=== PATIENT | female | born 2000 | race Caucasian/White ===

== ENCOUNTER → 2020-04-02 | Outpatient (CLI) | payer BC ==
--- NOTE | 2020-04-02 11:59 | KCIC ---
EXAM: Lumbar spine MRI without contrast. HISTORY: Complex regional pain syndrome of the right lower extremity. Lumbar radiculopathy. TECHNIQUE: Multiplanar, multisequence magnetic resonance imaging of the lumbar spine was performed without contrast. COMPARISON: None. FINDINGS: There is no significant scoliosis or listhesis. The vertebral bodies are normal in height and demonstrate normal marrow signal intensity. There is no suspicious osseous lesion. There is no fracture. The conus terminates at the superior aspect of L2. There is no disc protrusion or significant foraminal or central canal stenosis. IMPRESSION: No acute finding or significant lumbar foraminal or central canal stenosis. Electronically signed by: Tricia Donaldson MD (04/02/2020 11:57 AM) [facility]
== END | disposition home or self-care (01) ==
LOC: KCIC MRI 10:52
PROVIDERS: ATTEND Physician Assistant
DX: M54.16 Radiculopathy, lumbar region (principal); G90.521 Complex regional pain syndrome I of right lower limb
CPT/HCPCS: 72148